=== PATIENT | male | born 1945 | race Caucasian/White ===

== ENCOUNTER 2024-05-31 19:05 | Emergency (ER) | payer MEDICARE, OTHER ==
[~2024-05-31] VITALS: Ht 185.4 cm; Wt 90.9 kg
[2024-05-31 19:28] VITALS: BP 156/82; PULSE 76; RESP 18; TEMP 98.6; O2SAT 98
== END 2024-06-01 00:32 | disposition home or self-care (01) ==
LOC: EMS 19:05
DX: S11.80XA Unspecified open wound of other specified part of neck, initial encounter (principal); X58.XXXA Exposure to other specified factors, initial encounter; Y93.89 Activity, other specified; Y92.89 Other specified places as the place of occurrence of the external cause; Y99.8 Other external cause status
CPT/HCPCS: 99283; Z7502